=== PATIENT | male | born 1960 | race Two or more races ===

== ENCOUNTER 2020-01-02 12:25 | Emergency (ER) | payer OTHER ==
[~2020-01-02] VITALS: Ht 172.7 cm; Wt 74.8 kg
[2020-01-02 12:41] VITALS: Ht 172.7 cm; Wt 74.8 kg
[2020-01-02 13:57] LABS: CALCIUM 9.3 mg/dL (8.5-10.1); CARBON DIOXIDE 29.6 mmol/L (21-32); CREATININE SERUM 1.5 mg/dL (0.7-1.3); POTASSIUM SERUM 3.6 mmol/L (3.5-5.1)
[2020-01-02 14:01] LABS: TOTAL PROTEIN, SERUM 7.1 g/dL (6.4-8.2)
[2020-01-02 14:02] LABS: ALBUMIN 3.3 g/dL (3.4-5.0)
[2020-01-02 14:05] LABS: PLATELET COUNT 267 x10^3mcL (130-400)
[2020-01-02 14:11] LABS: BILIRUBIN TOTAL 17.7 mg/dL (0.20-1.00)
[2020-01-02 14:14] LABS: FREE T4 1.18 ng/dL (0.76-1.46); FREE THYROXINE INDEX 2.4 ug/dL (1.4-4.5); T4(THYROXINE) 7.1 ug/dL (4.7-13.3)
[2020-01-02 14:29] LABS: T3 TOTAL 0.88 ng/mL
[2020-01-02 16:31] LABS: BAND NEUTROPHIL 0 % (0-10); BASOPHIL 0 % (0-2); SEGMENTED NEUTROPHILS 85 % (37-75); rbc morphology (normal/abnorm) ABNORMAL (NORMAL)
[2020-01-02 18:02] VITALS: BP 110/66
== END 2020-01-02 19:56 | disposition short-term general hospital (02) ==
LOC: ED 12:25
PROVIDERS: Emergency Medicine
DX: K83.1 Obstruction of bile duct (principal); R63.4 Abnormal weight loss; J98.11 Atelectasis
CPT/HCPCS: 84439; Q0092; Q9966; Q9967